=== PATIENT | female | born 2000 | race Caucasian/White ===

== ENCOUNTER 2022-05-25 10:14 | Emergency (ER) | payer OTHER | END 2022-05-25 12:35 | disposition home or self-care (01) | LOC: CSHERS 10:14 | DX: J06.9 Acute upper respiratory infection, unspecified (principal) | CPT/HCPCS: 71046 ==

== ENCOUNTER 2023-06-02 22:37 | Emergency (ER) | payer OTHER, SELFPAY ==
[2023-06-02 23:57] LABS: #Eosinphils 0.2 10x3/uL (0.0-0.5); #Monocytes 0.5 10x3/uL (0.0-1.1); #Neutrophils 3.4 10x3/uL (1.5-8.4); %Basophils 0.6 % (0.0-2.0); %Eosinophils 4.3 % (0.0-6.0); %Lymphocytes 21.9 % (18.0-47.0); %Monocytes 9.7 % (0.0-10.0); %Neutrophils 63.3 % (40.0-75.0); Hemoglobin 14.5 g/dL (12.0-15.5); Mean Corpuscular HGB CONC 34.8 g/dL (32.0-36.0); Mean Corpuscular Hemoglobin 29.5 pg (27.0-33.0); Mean Corpuscular Volume 84.9 fl (81.6-98.3); Mean Platelet Volume 9.8 fl (7.4-10.4); Platelet Count 210 10x3/uL (150-450); RBC Distribution Width 12.2 % (11.5-14.5); Red Blood Cell (RBC) Count 4.91 10x6/uL (3.90-5.03); White Blood Cell (WBC) Count 5.4 10x3/uL (3.5-10.5)
[2023-06-02] MEDS ORDERED: Metoclopramide HCl 10 MG/2 ML VIAL ONE (23:59)
[2023-06-02] MEDS ORDERED: diphenhydrAMINE 50 MG/ML VIAL ONE (23:59)
[2023-06-03] MEDS ORDERED: Ketorolac Tromethamine 30 MG/ML VIAL ONE
[2023-06-03 00:04] LABS: BHCG - Serum Negative (NEGATIVE); Pregs Control Background? CLEAR/WHITE (CLR/WHITE); Pregs Control Bar Appear? YES (CONTROL BAR)
[2023-06-03 00:09] LABS: Mononucleosis NEGATIVE (NEGATIVE)
[2023-06-03 00:10] LABS: MONO NEGATIVE CONTROL ZONE White (Negative) (White); MONO POSITIVE CONTROL Pink Line (Positive) (PINK/RED)
[2023-06-03 00:15] LABS: Sodium 138 mmol/L (136-145)
[2023-06-03 00:16] LABS: Albumin 4.1 g/dL (3.5-5.0); Anion Gap 15 mmol/L (10-20); BUN (Urea Nitrogen) 14 mg/dL (7.0-18.7); Bilirubin, Total 0.4 mg/dL (0.2-1.2); Calc. Creatinine Clearance 0 mL/min (70-130); Calcium 9.4 mg/dL (7.8-10.44); Carbon Dioxide 21 mmol/L (22-29); Chloride 106 mmol/L (98-107); Estimated GFR 107; Glucose 93 mg/dL (70-105); Potassium 4.1 mmol/L (3.5-5.1); Protein, Total 7.3 g/dL (6.0-8.3)
[2023-06-03 00:17] LABS: ALT (SGPT) 11 U/L (8-55); AST (SGOT) 20 U/L (5-34); Alkaline Phosphatase 55 U/L (40-100); CK (CPK) 42 U/L (29-168); Globulin 3.2 g/dL (2.4-3.5); Lipase 11 U/L (8-78)
[2023-06-03 00:26] LABS: Bilirubin 1+ (Negative); Blood, Urine Negative (Negative); Clarity Slightly Cloudy (Clear); Glucose, Urine (Dipstick) Normal (Negative); Ketone, Urine 15 mg/dL (Negative); Leukocyte 25 (Negative); Nitrite Negative (Negative); Protein, Urine (Dipstick) 30 mg/dl (Neg-Trace); Specific Gravity, Urine 1.025 (1.005-1.030)
[2023-06-03 00:35] LABS: Bacteria/HPF Rare-Few HPF (None Seen); CAUTI Indications for Culture Fever or rigors; RBC/HPF 0-3 HPF (0-3); Squamous Epithelial 0-3 HPF (0-3)
[2023-06-03 00:38] LABS: Urine Culture Reflex No No
== END 2023-06-03 02:38 | disposition home or self-care (01) ==
LOC: CSHERS 22:37
DX: E86.0 Dehydration (principal); B34.9 Viral infection, unspecified
CPT/HCPCS: 80053; 81001; 82550; 83690; 84443; 84703; 85025; 86308; 93005; 96365; 96375; J1200; J1885; J2765